=== PATIENT | female | born 1980 | race Caucasian/White ===

== ENCOUNTER → 2024-12-11 | Outpatient (CLI) | payer OTHER, SELFPAY ==
[2024-12-11 17:49] LABS: Absolute Lymphocyte Count 2.57 X10^3/uL (0.83-4.51); Absolute Neutrophil Count 3.7 X10^3/uL (2.0-7.7); Basophil# 0.03 X10^3/uL; Basophil% 0.4 % (0-1); Eosinophil# 0.18 X10^3/uL; Eosinophils% 2.5 % (0-5); Hematocrit 40.1 % (37-47); Hemoglobin 13.2 g/dL (12.0-15.0); Lymphocyte # 2.57 X10^3/ul (0.83-4.51); Lymphocyte % 35.7 % (19-41); Mean Corp Hgb Conc 32.9 g/dL (32-36); Mean Corpuscular Hgb 30.4 pg (27.0-32.0); Mean Corpuscular Volume 92.4 fL (81-99); Mean Platelet Vol. 9.9 fl (6.2-12.0); Monocyte# 0.67 X10^3/uL; Monocyte% 9.3 % (0-10); NRBC Flagged by Analyzer 0 % (0-5); Neutrophil # 3.71 X10^3/uL (2.7-7.7); Neutrophil % 51.7 % (47-70); Platelet Count 289 K/mm3 (150-450); RBC Distribution Width CV 12.6 % (11.6-14.6); RBC Distribution Width SD 42.5 fl (35.1-43.9); Red Blood Count 4.34 M/mm3 (4.2-5.4); White Blood Count 7.2 K/mm3 (4.4-11.0)
[2024-12-11 17:51] LABS: Vitamin D,25 Hydroxy 18.8 ng/mL
[2024-12-11 17:56] LABS: Ferritin 41 ng/mL (8-252); T4 Free Direct 0.88 ng/dL (0.76-1.46)
[2024-12-15 19:07] LABS: Vitamin D 1,25-Dihydroxy 44.7 pg/mL (24.8-81.5)
[2024-12-16 13:06] LABS: Testosterone, % Free 3.72 % (0.50-2.80); Testosterone, Free 9.26 ng/dL (0.10-0.85); Testosterone, Total 249 ng/dL (4-50); Thyroid Peroxidase AB 11 IU/mL (0-34); Zinc, Plasma or Serum 55 ug/dL (44-115)
== END | disposition home or self-care (01) ==
LOC: MTLAB 15:31
PROVIDERS: Referring Provider Dermatology; Visit Provider Dermatology
DX: L65.9 Nonscarring hair loss, unspecified (principal)
CPT/HCPCS: 36415; 82306; 82652; 82728; 84402; 84403; 84439; 84443; 84630; 85025; 86376